=== PATIENT | female | born 1995 | race Hispanic/Latino ===

== ENCOUNTER 2018-11-10 08:14 | Emergency (ER) | payer MEDICAID, OTHER, SELFPAY ==
[~2018-11-10] VITALS: Ht 157.5 cm; Wt 83.0 kg
[2018-11-10] MEDS ORDERED: prenatal vit (08:22)
[2018-11-10] MEDS ORDERED: STOOL SOFTER (08:22)
[2018-11-10 10:14] LABS: BASO % 0.5 % (0.0-1.0); EOS # 0.2 10^3/uL (0.0-0.5); EOS % 2.1 % (0.0-3.0); HEMATOCRIT 42.6 % (36.0-47.0); HEMOGLOBIN 13.6 g/dl (12.0-15.5); LYMPH # 2.4 10^3/uL (1.5-5.0); LYMPH % 31.5 % (24.0-44.0); MEAN CORPUSCULAR HEMOGLOBIN 27.8 pg (27.0-33.0); MEAN CORPUSCULAR HGB CONC 31.9 g/dl (32.0-36.5); MEAN CORPUSCULAR VOLUME 87.1 fl (80.0-96.0); MONO # 0.3 10^3/uL (0.0-0.8); MONO % 4.5 % (0.0-5.0); NEUTROPHILS # 4.7 10^3/uL (1.5-8.5); NEUTROPHILS % 61.3 % (36.0-66.0); PLATELET COUNT, AUTOMATED 305 10^3/uL (150-450); RED BLOOD COUNT 4.89 10^6/uL (4.00-5.40); WHITE BLOOD COUNT 7.6 10^3/uL (4.0-10.0)
[2018-11-10 11:57] LABS: CHLAMYDIA DNA AMPLIFICATION NEGATIVE (NEGATIVE); GC DNA AMPLIFICATION NEGATIVE (NEGATIVE)
[2018-11-10] MEDS ORDERED: SILVER NITRATE APPLICATOR As Ordered ONE (11:57)
[2018-11-10] MEDS ORDERED: SILVER NITRATE APPLICATOR TOP ONE (12:00)
[2018-11-10] MEDS ORDERED: LIDOCAINE 1% MDV 20ML VIAL IM ONE (12:15)
[2018-11-10 13:23] VITALS: BP 115/80
--- NOTE | 2018-11-10 13:57 | CR ---
DATE OF CONSULTATION: 11/10/2018 A 23-year-old female, status post vacuum vaginal delivery 8 weeks ago in [facility] presents with pain in the vaginal area when she walks or has to urinate. She has a red lesion in the area which is exquisitely tender. She was treated by her physicians in the [place] on multiple occasions for separation of her episiotomy. Per her report, had to have extra sutures placed when it . Has been visiting here and the pain became unbearable. She denies vaginal bleeding. Denies fevers. MEDICAL HISTORY: Noncontributory. SURGICAL HISTORY: None. ALLERGIES: None. PHYSICAL EXAMINATION: Blood pressure 123/73, temperature 97.6, pulse 85, respiratory rate 18. HEAD AND NECK EXAMINATION: Normal. ABDOMEN: Nontender. Uterus is well contracted. Abdomen soft. STERILE VAGINAL EXAMINATION: She has got 3 cm area of granulation tissue in the right paramedian area of the perineal body in a linear pattern, somewhat like an episiotomy. There is an extensive amount of granulation tissue present. The remainder of the vagina appears normal. Discharge is normal. PROCEDURE: The patient was consented for excision of granulation tissue. The area was prepped with Betadine. The area was injected with 10 mL of 1% lidocaine. A scalpel was used to excise excess granulation tissue. The area was then coagulated with silver nitrate. The patient tolerated the procedure well. Sponge and needle counts were correct. ASSESSMENT: A 23-year-old, 8 weeks status post vaginal delivery with episiotomy, presents with wound separation and granulation tissue. PLAN: The patient was treated with appropriate therapy as much as possible in an emergency room (ER) setting. She understands that she may need repeat treatments with silver nitrate to completely heal in the area. She plans to followup with her physician in [facility] upon her return home in 3 days. If she has any further problems, she will contact us directly while she is here.
== END 2018-11-10 13:25 | disposition home or self-care (01) ==
LOC: M ED 08:14
DX: O90.1 Disruption of perineal obstetric wound (principal); Z79.899 Other long term (current) drug therapy; Z88.6 Allergy status to analgesic agent